=== PATIENT | male | born 1995 | race African-American/Black ===

== ENCOUNTER → 2017-06-12 | Outpatient (CLI) | payer BC, OTHER ==
[~2017-06-12] MED LIST: ACET-1256 PO; CONCERTA PO
== END | disposition home or self-care (01) ==
LOC: C.RDSM 11:15
PROVIDERS: ATTEND Family Medicine
DX: R10.33 Periumbilical pain (principal)

== ENCOUNTER → 2017-07-03 | Outpatient (CLI) | payer BC, OTHER | END | disposition home or self-care (01) | LOC: C.RDSM 15:17 | PROVIDERS: ATTEND Family Medicine | DX: M79.672 Pain in left foot (principal) ==

== ENCOUNTER → 2017-08-14 | Outpatient (CLI) | payer BC, OTHER | END | disposition home or self-care (01) | LOC: C.RDSM 17:13 | PROVIDERS: ATTEND Family Medicine | DX: S92.355D Nondisplaced fracture of fifth metatarsal bone, left foot, subsequent encounter for fracture with routine healing (principal); X58.XXXD Exposure to other specified factors, subsequent encounter; Z88.1 Allergy status to other antibiotic agents; Z91.048 Other nonmedicinal substance allergy status ==

== ENCOUNTER → 2017-11-19 | Outpatient (CLI) | payer BC, OTHER | END | disposition home or self-care (01) | LOC: C.RDSM 08:05 | PROVIDERS: ATTEND Family Medicine | DX: S99.199A Other physeal fracture of unspecified metatarsal, initial encounter for closed fracture (principal); X58.XXXA Exposure to other specified factors, initial encounter ==

== ENCOUNTER → 2017-12-03 | Outpatient (CLI) | payer BC, OTHER | END | disposition home or self-care (01) | LOC: C.RDSM 12:03 | PROVIDERS: ATTEND Family Medicine | DX: S92.355A Nondisplaced fracture of fifth metatarsal bone, left foot, initial encounter for closed fracture (principal); X58.XXXA Exposure to other specified factors, initial encounter ==

== ENCOUNTER → 2017-12-11 | Outpatient (CLI) | payer BC, OTHER ==
--- NOTE | 2017-12-11 09:44 | DIAGNOSTIC IMAGING REPORT ---
L FOOT MIN 3 VIEWS HISTORY: 22 years-old Male LEFT 5TH MT FX follow-up study to assess fracture of the fifth metatarsal COMPARISON: Left foot radiographs 12/03/2017 and 07/03/2017 TECHNIQUE: 3 views of the left foot FINDINGS: Intact cannulated screw of the proximal fifth metatarsal is noted fixating a subacute appearing transversely oriented nondisplaced fracture of the proximal metaphyseal fifth metatarsal. There is incomplete healing about the lateral cortex which is unchanged from most recent comparison. The medial cortex appears completely healed. No additional acute fracture or dislocation. No opaque foreign body or significant degenerative changes. IMPRESSION: Intact cannulated screw of the proximal fifth metatarsal fixating a subacute proximal metaphyseal fifth metatarsal fracture. Incomplete bony healing of the lateral cortex appears unchanged. The above report was generated using voice recognition software. It may contain grammatical, syntax or spelling errors. Electronically signed by: Yamil Jaramillo M.D. 12/11/2017 9:43 AM Dictated Date/Time: 12/11/2017 9:40 AM
== END | disposition home or self-care (01) ==
LOC: C.RDSM 09:53
PROVIDERS: ATTEND Orthopaedic Surgery
DX: S92.355G Nondisplaced fracture of fifth metatarsal bone, left foot, subsequent encounter for fracture with delayed healing (principal); X58.XXXA Exposure to other specified factors, initial encounter